=== PATIENT | female | born 1975 | race Caucasian/White ===

== ENCOUNTER 2018-01-21 06:25 | Day surgery (SDC) | payer BC ==
[~2018-01-21 06:25] MED LIST: Buffered Lidocaine 0.9% SYRIN* 5 ML/SYR SYRINGE INTRADERM ONE
[2018-01-21] MEDS ORDERED: ceFAZolin 2 GM PREMIX (*) 2 GM/50 ML BAG IVPB ONE (06:38)
[2018-01-21] MEDS ORDERED: Lidocaine 1% INJ* 10 MG/ML 30 ML SDV ONE (07:22)
[2018-01-21] MEDS ORDERED: Dexamethasone IV* 4 MG/ML 1 ML (4 MG) ONE ×2 (07:22→07:33)
[2018-01-21] MEDS ORDERED: Bupivacaine 0.5% SDV PF* 30ML VIAL ONE (07:23)
[2018-01-21] MEDS ORDERED: fentaNYL* 50 MCG/ML 2 ML VIAL (100 MCG VIAL) ONE (07:35)
[2018-01-21] MEDS ORDERED: Midazolam* 1 MG/ML 5 ML VIAL (5 MG) ONE (07:35)
[2018-01-21 09:12] VITALS: BP 110/62
[2018-01-21] MEDS ORDERED: Propofol* 10 MG/ML 20 ML BTL IV PUSH ONE (09:33)
[2018-01-21] MEDS ORDERED: Naloxone* 0.4 MG/ML 1 ML VIAL IV PRN (09:45)
--- NOTE | 2018-01-21 22:25 | OP ---
DATE OF OPERATION: 01/21/18 - [facility] DATE OF : 77 SURGEON: Donn Alvarado DPM RESEARCH PROGRAM INTERN: None. ANESTHESIA: MAC with local. PRE-OP DIAGNOSIS: Painful bunion deformity, right foot. POST-OP DIAGNOSIS: Painful bunion deformity, right foot. OPERATIVE PROCEDURE: Bunionectomy with closing base wedge first metatarsal osteotomy and phalangeal osteotomy in the right foot. PATHOLOGY: Degenerative bone. HEMOSTASIS: Pneumatic ankle tourniquet. ESTIMATED BLOOD LOSS: Less than 20 cc. MATERIALS: Three of the 3.0 mm cannulated Tracie screws. INDICATIONS: The patient with chronic right forefoot pain and deformity over the past 12 to 15 years with pain and inflammation about the right great toe joint and pain with walking and wearing closed shoes due to large bunion deformity. The patient opted surgery at this time to attempt to decrease her pain and improve her function. DESCRIPTION OF PROCEDURE: The patient was brought to the operating room and placed on the operating table in supine position. The Anesthesia Department administered IV sedation and peripheral nerve blocks were performed about the right foot with 1:1 mixture of 1% lidocaine plain and 0.5% Marcaine plain. The right foot was prepped and draped in the usual fashion. The right foot was then exsanguinated with an Esmarch bandage and the pneumatic ankle tourniquet was inflated to 250 mmHg about a well-padded right ankle. Attention was directed to the dorsal medial aspect of the right great toe joint where a curvilinear incision was made. The incision was deepened through subcutaneous tissues with care being taken to retract neurovascular structures and cauterize superficial bleeders. Next, an inverted-L capsular incision was made to allow for exposure of the joint. There was noted to be hypertrophic bone at the medial aspect of the first metatarsal head. McGlamry elevator was needed to free the plantar lateral adhesions of the sesamoid apparatus. Next, dissection was carried into the first metatarsal space and a traditional lateral release was performed including release of the extensor hallucis brevis tendon. With this being done, the lateral contractures were released. The sagittal saw was used to resect the medial eminence in a manner to preserve the sagittal groove. Resultant bone was sent off the field as specimen. The power cora was used to smooth rough edges. Surgical site was flushed with copious amounts of normal sterile saline. Next, a closing base wedge osteotomy was performed where an angular wedge of bone was resected angled from distal lateral to more proximal medial with the medial hinge maintained. With this being done, the osteotomy was reduced, secured with the bone clamp and position and correction was assessed with C-arm. Next, using standard technique, two of the 3.0 mm cannulated Tracie screws were placed across the osteotomy site. Again fixation was assessed with the C-arm. The temporary fixation was removed. The osteotomy was inspected and found to be solid with no detectable motion or gapping and the screw was two fingers tight. There was still some hallux interphalangeus and so dissection was carried further distal medially with care being taken to retract neurovascular structures and cauterize superficial bleeders as needed. The capsule incision was lengthened and allow for exposure of the proximal phalanx. Next, an angular phalangeal osteotomy was performed with medial wedge bone resected. The osteotomy was reduced and temporary fixation was achieved with the bone clamp and after assessing with the C-arm and using standard technique, a 3.0 mm cannulated screw was placed across the osteotomy site. The osteotomy was oriented distal medial to more proximal lateral and the lateral hinge was maintained. With fixation in place, the temporary fixation was removed and position and correction was assessed with the C-arm and the osteotomy was inspected and found to be solid with no detectable motion or gapping and the screw was two fingers tight. Surgical site was flushed with copious amounts of normal sterile saline and redundant medial capsule was resected. Using 2-0 Vicryl, the periosteal and capsular tissues were reapproximated and secured while holding the hallux in rectus position. Subcutaneous tissue was reapproximated with 4-0 Vicryl and the skin was reapproximated and secured with 5-0 nylon. A 12 mg of dexamethasone phosphate was infiltrated about the surgical site and the incision was dressed with the Xeroform gauze and a light compression dressing with 4x4 gauze, Pavel, and light Coban wrap. Pneumatic ankle tourniquet was deflated about the right ankle and prompt hyperemic response was noted about all 5 digits of the patient' s right foot. Having appeared to tolerate the procedure and anesthesia well, the patient was transported via cart from the operating room to Recovery in satisfactory condition with cap refill less than 3 seconds to all digits of the right foot. [id number]/[facility] #: [id number] ABNER
--- NOTE | 2018-01-22 18:14 | RAD ---
INDICATION: Intraoperative fluoroscopy RIGHT foot. Technique: 19 seconds of?fluoroscopy?was provided?for the physician proceduralist. REPORT: Spot images document first metatarsal and first proximal phalanx osteotomies. IMPRESSION: Procedural control films. CPT II Codes: G9500
== END 2018-01-21 09:32 | disposition home or self-care (01) ==
LOC: OREAST 06:25
PROVIDERS: ATTEND Podiatrist Foot Surgery
DX: M21.611 Bunion of right foot (principal); Z72.0 Tobacco use
CPT/HCPCS: 76000; 81025; 88304; 88311; C1713; C1776; J0690; J1100; J2250; J2704; J3010

== ENCOUNTER 2019-01-20 06:17 | Day surgery (SDC) | payer BC ==
[~2019-01-20 06:17] MED LIST changes: -Buffered Lidocaine 0.9% SYRIN* 5 ML/SYR SYRINGE INTRADERM ONE; +Buffered Lidocaine 1% SYRIN* 1 ML/SYRINGE INTRADERM ONE; +Dexamethasone IV* 4 MG/ML 1 ML (4 MG) IV SLOW PU ONE; +Famotidine IV* 10 MG/ML 2 ML (20 mg) IV ONE; +Lactated Ringers 1000 ML Bag* 1,000 ML IV SCH
[2019-01-20] MEDS ORDERED: Dexamethasone IV* 4 MG/ML 1 ML (4 MG) ONE ×2 (06:32→07:29)
[2019-01-20] MEDS ORDERED: Famotidine IV* 10 MG/ML 2 ML (20 mg) ONE (06:33)
[2019-01-20] MEDS ORDERED: ceFAZolin 2 GM in NS PREMIX(*) 2 GM/100 ML BAG IVPB ONE (06:33)
[2019-01-20] MEDS ORDERED: Naloxone* 0.4 MG/ML 1 ML VIAL IV PRN (07:17)
[2019-01-20] MEDS ORDERED: fentaNYL* 50 MCG/ML 2 ML VIAL (100 MCG VIAL) IV PRN (07:17)
[2019-01-20] MEDS ORDERED: oxyCODONE/Acetamin 5/325 MG* TAB PO PRN (07:17)
[2019-01-20] MEDS ORDERED: Ondansetron INJ* 2 MG/ML VIAL IV PRN (07:17)
[2019-01-20] MEDS ORDERED: Scopolamine 1.5 mg* PATCH TRANSDERM PRN (07:17)
[2019-01-20] MEDS ORDERED: DiMENhydriNATE IV* 50 MG/ML VIAL IV PUSH PRN (07:17)
[2019-01-20] MEDS ORDERED: Midazolam* 1 MG/ML 5 ML VIAL (5 MG) ONE (07:19)
[2019-01-20] MEDS ORDERED: fentaNYL* 50 MCG/ML 2 ML VIAL (100 MCG VIAL) ONE (07:19)
[2019-01-20] MEDS ORDERED: Ketorolac INJ* 30 MG/ML 1 ML VIAL ONE (07:22)
[2019-01-20] MEDS ORDERED: Ondansetron INJ* 2 MG/ML VIAL ONE (07:22)
[2019-01-20] MEDS ORDERED: Propofol* 10 MG/ML 20 ML BTL ONE (07:22)
[2019-01-20] MEDS ORDERED: Bupivacaine 0.5% SDV PF* 30ML VIAL ONE (07:29)
[2019-01-20] MEDS ORDERED: Lidocaine 1% INJ* 10 MG/ML 30 ML SDV ONE (07:29)
[2019-01-20 09:57] VITALS: BP 108/63
--- NOTE | 2019-01-20 10:54 | OP ---
DATE OF OPERATION: 01/20/19 - [facility] DATE OF : 77 SURGEON: Donn Alvarado DPM [employer] SUPERVISOR: None. ANESTHESIA: MAC with local. PRE-OP DIAGNOSIS: Painful bunion deformity, left foot. POST-OP DIAGNOSIS: Painful bunion deformity, left foot. OPERATIVE PROCEDURE: Bunionectomy with first metatarsal osteotomy and phalangeal osteotomy in the left foot. PATHOLOGY: Degenerative bone. HEMOSTASIS: Pneumatic ankle tourniquet. MATERIALS: Three of the 3.0 mm cannulated Tracie screws. INDICATIONS: The patient with chronic left forefoot pain and deformity with large bunion causing pain when walking and wearing shoes, and she opts for surgery at this time to decrease her pain and improve her function and ability to wear closed shoes without pain. DESCRIPTION OF PROCEDURE: The patient was brought to the operating room and placed on the operating table in supine position. The anesthesia department administered IV sedation. A peripheral nerve block was performed about the left foot with 1:1 mixture of 1% lidocaine plain and 0.5% Marcaine plain. The left foot was then prepped and draped in the usual fashion. The left foot was then exsanguinated with an Esmarch bandage and pneumatic ankle tourniquet was inflated to 250 mmHg about a well-padded left ankle. Attention was directed to the dorsomedial aspect of the left great toe joint, where a linear incision was made. The incision was deepened through the subcutaneous tissues with care being taken to retract the neurovascular structures and cauterize superficial bleeders as needed. An inverted L capsular incision was made and the periosteum and capsular tissues were reflected to allow exposure of the first metatarsal. There was noted to be hypertrophic bone medially and this was resected with the sagittal saw and sent off the field. McGlamry elevator was needed to free plantar lateral adhesions, and next, a traditional lateral release was performed in the first intermetatarsal space including release of the extensor hallucis brevis tendon. After this being done, there was adequate release of the lateral tissues. Next, a closing-base wedge osteotomy was performed, reduced with a bone clamp and then the position was assessed with the C- arm. Next, using standard technique, two of the K-wires were used for temporary fixation and 3.0 mm screws were placed across the osteotomy site from medial to lateral. The temporary fixation was removed and the final fixation was assessed and the osteotomy was inspected and found to be solid with no detectable motion or gapping and the screws were 2 fingers tight. The rough edges of the first metatarsal head were burred smooth. The surgical site was flushed with copious amounts of normal sterile saline. There was still some lateral deviation within the great toe with some hallux interphalangeus, so dissection was carried further distally and medially with care being taken to retract neurovascular structures and to cauterize superficial bleeders as needed. The periosteum was reflected to allow for exposure of the proximal phalanx and an angular wedge of bone was resected angled at the base of the proximal lateral aspect of the proximal phalanx, and with resultant wedge bone removed, the osteotomy was reduced. Temporary fixation achieved with the wire from the screw set. The position was checked with C-arm and a 3.0 mm screw was placed across the osteotomy site. Temporary fixation removed. The fixation was assessed with C-arm and the osteotomy was found to be solid with no detectable motion or gapping and the screw was 2 fingers tight. The redundant medial capsule was resected. The surgical site was again flushed with copious amounts of normal sterile saline and the periosteal and capsular tissues were reapproximated and secured with 2-0 Vicryl holding the great toe joint in the rectus position. Subcutaneous tissues were reapproximated and secured with 4-0 Vicryl and the skin was closed with 5-0 nylon. 12 mg of dexamethasone phosphate was infiltrated about the surgical site and the incision was dressed with Xeroform gauze and 4 x 4 gauze, Pavel, and light Coban wrap was used to secure and dress and splint the toe. The pneumatic ankle tourniquet was deflated about the left ankle and a prompt hyperemic response was noted in all 5 digits of the patient's left foot. Having appeared to tolerate the procedure and anesthesia well, the patient was transported via cart from the operating room to recovery in satisfactory condition with cap refill less than 3 seconds to all digits in the left foot. [id number]/[facility] #: [id number] MTDD
== END 2019-01-20 09:40 | disposition home or self-care (01) ==
LOC: OREAST 06:17
PROVIDERS: ATTEND Podiatrist Foot Surgery
DX: M21.612 Bunion of left foot (principal); I10 Essential (primary) hypertension; Z72.0 Tobacco use
CPT/HCPCS: 76000; 81025; 88304; 88311; C1713; C1776; J0690; J1100; J1885; J2250; J2405; J2704; J3010; J3490